=== PATIENT | female | born 1985 | race African-American/Black ===

== ENCOUNTER 2019-02-20 08:10 | Inpatient (IN) | payer MEDICAID ==
[~2019-02-20] VITALS: Ht 172.7 cm; Wt 81.4 kg
[2019-02-20] VITALS (31 sets, daily range): BP systolic 116–142; BP diastolic 58–89; PULSE 67–103; TEMP 97.4–99.2
[~2019-02-20 08:10] MED LIST: CEPHALEXIN500 M1 PO; DEPO SHOT; MOTRIN 600600 MG/TAB PO; NORCO 325 MG-7.1 TAB PO; PERCOCET 325 MG1 TA2 PO; PHENERGAN 25 TA25 MG PO; RYBIX ODT50 MG PO
--- NOTE | 2019-02-20 08:20 | NUR ---
0820-G6L4 38.[address] PADILLA ESCORTED TO UNIT VIA WHEELCHAIR WITH COMPLAINTS OF BACK ACHE AND POSSIBLE SROM. ASSISTED INTO GOWN AND PLACED ON EFM. VSS. AMNITEST WITH INCONCLUSIVE RESULT, SVE /-2 BOW BULDGING. UPDATED ON PLAN OF CARE. 0842-DR. CLIFFORD UPDATED ON PATIENT, ORDERS TO ADMINT WITH GBS + PROTOCOL. 0846-Elisabeth CHICAS CRNA NOTIFIED OF PATIENTS REQUEST FOR EPIDURAL. 0905-NENO TO PATIENT ROOM 0910-Elisabeth CHICAS ASSISTS WITH IV PLACEMENT AFTER TWO FAILED ATTEMPTS, IV PER NENO TO RIGHT AC 18G, LABS DRAWN, LR INFUSING PER ORDERS AND PROTOCOL. PEN G PER GBS PROTOCOL AND MD ORDER, SEE EMAR 0915-PATIENT SITTING UPRIGHT ON BEDSIDE FOR EPIDURAL PLACEMENT. 0920-SS ADMINISTERED BY BARRY LAZCANO 0922-TEST DOSE ADMINISTERED BY BARRY LAZCANO. VSS, PATIENT DENIES SYMPTOMS OF REACTION OR SIDE EFFECTS. 0934-DR. CLIFFORD ON UNIT REVIEWS FHR MONITOR AND IN TO DISCUSS PLAN OF CARE WITH PATIENT. 0950-ESPINOSA TO DD, CLEAR YELLOW URINE RETURN. SVE 6-7/100/-2 CHEKO CARE PROVIDED. REPOSITIONED WL. 09
[2019-02-20] MEDS ORDERED: PRENATAL (08:40)
[2019-02-20 09:39] LABS: BASO % 0.3 % (0.0-2.0); EOS # 0.1 (0.0-0.7); EOS % 0.8 % (0-4.0); GRAN # 8.7 (1.4-6.5); GRAN % 71.1 % (42.2-75.2); HEMOGLOBIN 11.7 g/dl (12.5-16.0); LYMPH # 2.1 (1.2-3.4); LYMPH % 17.4 % (20.0-51.0); MEAN CELL VOLUME 94 fl (80.0-100.0); MEAN CORPUSCULAR HEMOGLOBIN 32 pg (27.0-31.0); MEAN CORPUSCULAR HGB CONC 34 g/dl (33.0-37.0); MEAN PLATELET VOLUME 9.5 fl (7.4-10.4); MONO # 1.1 (0.1-0.6); MONO % 9.2 % (1.7-9.3); PLATELET COUNT 319 K/mm3 (130-400); RED BLOOD COUNT 3.71 M/mm3 (4.10-5.30); REDCELL DISTRIBUTION WIDTH-CV 13.5 % (11.5-14.5)
[2019-02-20 09:41] LABS: HEMATOCRIT 34.8 % (37.0-47.0)
--- NOTE | 2019-02-20 11:50 | NUR ---
1150-SVE /-1, UPDATED DR. CLIFFORD WHO REMAINS ON UNIT AT NURSES DESK. ORDERS TO START PITOCIN PER PROTOCOL. 1156-PITOCIN STARTED AND VERIFIED PER PROTOCOL WITH GRICELDA MEADOWS AT 2MU/MIN.
--- NOTE | 2019-02-20 12:57 | NUR ---
1257-SVE BY DR. CLIFFORD /-1, AROM CLEAR FLUID NOTED. PLAN PER MD TO LABOR DOWN. MD REMAINS ON UNIT.
--- NOTE | 2019-02-20 13:30 | NUR ---
1330-SVE 10100/0, ESPINOSA DISCONTINUED 650ML CLEAR YELLOW URINE. UPDATED DR. CLIFFORD WHO IS ON UNIT. 1338-BEGIN PUSHING WITH CONTRACTION WITH THIS RN. PATIENT MOVES VERTEX WELL. DIFFICULTY TRACING FHR. RN ADJUSTING EFM. 1340-DR. CLIFFORD REQUESTED TO ROOM FOR DELIVERY. FHR DECEL DOWN TO 75BPM, PATIENT RL, OXYGEN VIA OXYMASK AT 10L/MIN 1343-PATIENT BEGINS PUSHING WITH MD THROUGH CONTRACTION. 1344-DELIVERY OF HEAD. 1344-SPONTANEOUS VAGINAL DELIVERY OF VIABLE FEMALE ATTENDED BY DR. CLIFFORD. TO MOTHERS ABDOMENT, CORD CLAMPED X2 BY MD AND CUT BY MATERNAL GRANDMOTHER. CARE OF INFANT ASSUMED BY GRICELDA PRICE APGARS 8/9. 1347-SPONTANEOUS DELVIERY OF INTACT PLACENTA BY DR. CLIFFORD. FUNDAL MASSAGE FIRM. LOCHIA WNL. EBL 200ML PITOCIN BOLUS STARTED PER MD ORDERS AND PROTOCOL. CHEKO CARE PROVIDED, INTACT PERINEUM, ICE TO PERINEUM. UPDATED ON PLAN OF CARE AND SAFETY.
--- NOTE | 2019-02-20 15:45 | NUR ---
1545-PATIENT UP TO BATHROOM, AMBULATES WITH STEADY GAIT. ASSISTED WITH CHEKO CARE. EASILY VOIDS 700ML CLEAR YELLOW URINE. AMBULATES TO ROOM 208, ORIENTED TO ROOM. UPDATED ON PLAN OF CARE. WILL CONTINUE TO MONITOR.
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
--- NOTE | 2019-02-20 18:50 | NUR ---
PT CHANGED TO "NO INFO", PASSWORD PROVIDED TO PT. DISCUSSED LIMITING NUMBER OF VISITORS THAT KNOW HER PASSWORD AND THAT VISITORS MUST KNOW HER FIRST NAME, LAST NAME, AND HER PASSWORD TO HAVE ACCESS TO THE UNIT. UNDERSTANDING VERBALZIED BY PT.
[2019-02-21 04:40] VITALS: BP 133/86; PULSE 73; TEMP 97.8
[2019-02-21] MEDS ORDERED: IBU600 MG PO (08:34)
[2019-02-21 09:05] VITALS: BP 139/88; PULSE 91; TEMP 98.3
--- NOTE | 2019-02-21 11:44 | NUR ---
Initial visit attempt; Commercial Loan Processor left card of congratulations and information regarding the availability of Spiritual Care at [facility]. Hearing Screening in progress.
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
[2019-02-21 17:02] VITALS: BP 128/55; PULSE 77; TEMP 98.6
[2019-02-21 22:35] VITALS: BP 136/81; PULSE 92; TEMP 98.2
[2019-02-22 08:34] VITALS: BP 115/76; PULSE 72; TEMP 98.1
--- NOTE | 2019-02-22 11:44 | NUR ---
1130 all discharge instructions given to patient, teach patient that baby is to not sleep in bed with her. Baby is to sleep in bassinet or crib. verbal understanding noted.
== END 2019-02-22 12:22 | disposition home or self-care (01) | DRG 807 ==
LOC: LDRO 08:10 → OB 08:45 → LDR 08:45 → OB 08:45
PROVIDERS: Obstetrics & Gynecology; ADMIT Obstetrics & Gynecology
PROC: 10E0XZZ Delivery of Products of Conception, External Approach (ICD-10-PCS; principal; 2019-02-20)
DX: O26.893 Other specified pregnancy related conditions, third trimester (principal); Z37.0 Single live birth; Z67.41 Type O blood, Rh negative; Z3A.38 38 weeks gestation of pregnancy; O99.824 Streptococcus B carrier state complicating childbirth; Z88.1 Allergy status to other antibiotic agents; O99.334 Smoking (tobacco) complicating childbirth
CPT/HCPCS: J2540; J2590; J2791; J2795; J7120

== ENCOUNTER 2019-05-25 22:08 | Emergency (ER) | payer MEDICAID ==
[~2019-05-25] VITALS: Ht 162.6 cm; Wt 68.2 kg
[~2019-05-25 22:08] MED LIST changes: +IBU600 MG PO; +PRENATAL
[2019-05-25 22:30] VITALS: TEMP 97
[2019-05-26] MEDS ORDERED: CALCIUM CARBON650 M2 (01:02)
[2019-05-26] MEDS ORDERED: NATURAL IRON65 MG (01:02)
[2019-05-26 01:46] VITALS: BP 121/80; PULSE 103
== END 2019-05-26 01:46 | disposition home or self-care (01) ==
LOC: COL.ER 22:08
DX: S61.210A Laceration without foreign body of right index finger without damage to nail, initial encounter (principal); Z87.891 Personal history of nicotine dependence; Z88.1 Allergy status to other antibiotic agents; W26.8XXA Contact with other sharp object(s), not elsewhere classified, initial encounter; Y92.009 Unspecified place in unspecified non-institutional (private) residence as the place of occurrence of the external cause

== ENCOUNTER 2019-06-09 19:55 | Emergency (ER) | payer MEDICAID ==
[~2019-06-09] VITALS: Ht 162.6 cm; Wt 68.6 kg
[~2019-06-09 19:55] MED LIST changes: +CALCIUM CARBON650 M2; +NATURAL IRON65 MG
[2019-06-09 20:21] VITALS: BP 155/85; PULSE 119; TEMP 98
[2019-06-09] MEDS ORDERED: BACTRIM DS 8001 TAB PO (20:42)
[2019-06-09] MEDS ORDERED: CEPHALEXIN500 M1 PO (20:42)
== END 2019-06-09 21:13 | disposition home or self-care (01) ==
LOC: COL.ER 19:55
DX: L02.511 Cutaneous abscess of right hand (principal)

== ENCOUNTER → 2021-04-11 | Outpatient (CLI) | payer OTHER, MEDICAID ==
[~2021-04-11] MED LIST changes: +BACTRIM DS 8001 TAB PO; +LANTUS SOLOS100 U/ML SQ; +PRENATAL TABLET PO
--- NOTE | 2021-04-11 13:32 | NUR ---
Called office of Dr. Franklin with recommendation to initiate insulin. No answer from nurse, but left message on identified VM with suggestion, pt's preferred pharmacy and contact information for a return call if needing clarification. Fax with change in order request was sent to Dr. Franklin' office and was transmitted successfully.
== END ==
LOC: DIA.ED 09:14
DX: O24.419 Gestational diabetes mellitus in pregnancy, unspecified control (principal)
CPT/HCPCS: G0108

== ENCOUNTER → 2021-05-13 | Outpatient (CLI) | payer OTHER, MEDICAID | LOC: DIA.ED 10:41 | DX: O24.419 Gestational diabetes mellitus in pregnancy, unspecified control (principal) | CPT/HCPCS: G0108 ==

== ENCOUNTER → 2021-06-05 | Outpatient (CLI) | payer OTHER, MEDICAID | LOC: DIA.ED 05-29 13:59 | DX: O24.419 Gestational diabetes mellitus in pregnancy, unspecified control (principal); Z79.4 Long term (current) use of insulin | CPT/HCPCS: G0108 ==

== ENCOUNTER 2021-06-09 22:03 | Inpatient (IN) | payer OTHER, MEDICAID ==
[~2021-06-09] VITALS: Ht 162.6 cm; Wt 89.5 kg
[~2021-06-09 22:03] MED LIST changes: -LANTUS SOLOS100 U/ML SQ; -PRENATAL TABLET PO
[2021-06-09 22:10] VITALS: BP 131/91; PULSE 87; TEMP 98.6
--- NOTE | 2021-06-09 22:10 | NUR ---
2209 G7L5 38.5 WEEK GEST TO LR5 WITH C/O CONTRACTIONS. UNCOMFORTABLE. SVE /-3 WITH BULGING BOW. BLOODY SHOW PRESENT. ADM ASSESSMENT DONE 2214 DR PADILLA NOTIFIED AND ADM ORDERS RECEIVED. HAS IDDGDM. ACCUCHECK DONE ON ADM = 108. STATES TAKES 24 HOUR INSULIN WHICH LAST TOOK [address] PADILLA AWARE. PERMITS SIGNED AND THINKING ABOUT EPIDURAL.
[2021-06-09] MEDS ORDERED: PRENATAL TABLET PO (22:29)
[2021-06-09] MEDS ORDERED: NATURAL IRON65 MG (22:30)
[2021-06-09] MEDS ORDERED: LANTUS SOLOS100 U/ML SQ (22:31)
[2021-06-09 22:50] VITALS: BP 134/85; PULSE 98
--- NOTE | 2021-06-09 22:50 | NUR ---
2240 IV FLUIDS 1000 CC NS STARTED IN RIGHT WRIST. WOULD LIKE TO BE CHECKED 2250 SVE 8CM WITH LARGE BAG OF WATER AND PRESENTING PART -3. WOULD LIKE AN EPIDURAL NOW. PROSPECT MANAGER NOTIFIED.
[2021-06-09 23:00] VITALS: BP 129/93; PULSE 96
--- NOTE | 2021-06-09 23:04 | NUR ---
2304 SROM WITH MECONIUM FLUID. [address] PADILLA CALLED TO COME FOR DELIVERY. READIED FOR DELIVERY 2317 DEL VIABLE MALE OVER INTACT PERINEUM WITH 8/9/9 APGARS. IV CONTS TO INFUSE.
[2021-06-09 23:13] LABS: BASO % 0.3 % (0.0-2.0); EOS # 0.1 (0.0-0.7); EOS % 0.6 % (0-4.0); GRAN # 8.6 (1.4-6.5); GRAN % 72.2 % (42.2-75.2); HEMATOCRIT 34.5 % (37.0-47.0); HEMOGLOBIN 11.5 g/dl (12.5-16.0); LYMPH % 16.5 % (20.0-51.0); MEAN CELL VOLUME 90 fl (80.0-100.0); MEAN CORPUSCULAR HEMOGLOBIN 30 pg (27.0-31.0); MEAN CORPUSCULAR HGB CONC 33 g/dl (33.0-37.0); MONO # 1.2 (0.1-0.6); MONO % 9.9 % (1.7-9.3); PLATELET COUNT 314 K/mm3 (130-400); RED BLOOD COUNT 3.84 M/mm3 (4.10-5.30); REDCELL DISTRIBUTION WIDTH-CV 13.7 % (11.5-14.5)
[2021-06-09 23:20] VITALS: BP 129/81; PULSE 83
[2021-06-09 23:35] VITALS: BP 124/71; PULSE 80
--- NOTE | 2021-06-09 23:35 | NUR ---
2335 FF. CLOTS X3 EXPRESSED WITH FUNDAL MASSAGE AND LARGE RUBRA. DR PADILLA HERE AND ORDER FOR METHERGINE GIVEN 2346 METHERGINE 0.2 MG IM GIVEN. NURSING BABY. C/O PERINEAL PAIN. MOTRIN 600MG PO GIVEN.
[2021-06-09 23:50] VITALS: BP 120/69; PULSE 86
[2021-06-10] VITALS (9 sets, daily range): BP systolic 124–164; BP diastolic 72–89; PULSE 69–94; TEMP 97.6–98.4
--- NOTE | 2021-06-10 | NUR ---
0000 FF WITH NO EXCESS VAG BLEEDING WITH FUNDAL CHECK
--- NOTE | 2021-06-10 00:20 | NUR ---
0020 3 CM CLOT EXPRESSED AND SOME FREE FLOW WITH FUNDAL CHECK. FUNDAS FIRM.
--- NOTE | 2021-06-10 01:00 | NUR ---
0100 IV TO INT. UP TO BR WITH ASSIST AND VOIDED 200CC. NO EXCESS VAG BLEEDING NOTED. PERICARE DONE. AMB TO 214 AND NICOLE WELL.
--- NOTE | 2021-06-10 01:30 | NUR ---
0130 EMESIS OF UNDIGESTED FOOD. FEELING BETTER. RESTING COMFORTABLY
--- NOTE | 2021-06-10 10:01 | NUR ---
Initial visit; Patient thanked Fraud Manager for offering congratulations and God's blessings for the of her son. Fraud Manager thanked patient for choosing [facility].
--- NOTE | 2021-06-10 18:30 | NUR ---
Report recieved. Asleep at this time. Support person at bedside feeding infant. Whiteboard updated.
--- NOTE | 2021-06-10 20:00 | NUR ---
Woke at this time for VS and assessment. asleep in bed between mom and support person. Mom required a firm rub on her shoulder to wake her. Requested Percocet and Motrin at this time. Infant to nsy for the night so parents can sleep.
--- NOTE | 2021-06-10 21:02 | NUR ---
Contacted blood [facility] at this time to get an update on Rhogam studies. Tech notified this nruse that they would be drawn on 06/11/2021 at 0600.
--- NOTE | 2021-06-11 03:30 | NUR ---
Woke pt at this time to feed .
--- NOTE | 2021-06-11 04:30 | NUR ---
Asleep at this time with unopened bottle at bedside. Woke pt who reports she did not feed baby. Instructed it was time to feed the baby; sat up in bed and requested tylenol.
[2021-06-11 08:00] VITALS: BP 127/70; PULSE 81; TEMP 98
[2021-06-11] MEDS ORDERED: IBU600 MG PO (08:45)
--- NOTE | 2021-06-11 13:00 | NUR ---
Rests in bed, alert. Eating noon meal. Discharge instructions given, verbalizes understanding.
--- NOTE | 2021-06-14 15:51 | NUR ---
Patient's infant's cord blood was positive for amphetamines and cannabinoids. human services worker filed a CPS report # [id number] and faxed results.
--- NOTE | 2021-06-14 16:48 | NUR ---
Marek Devine, KINDRA, contacted social contact worker and will make contact with patient to assess for early head start and substance abuse treatment. Marek stated he is familiar with patient.
== END 2021-06-11 13:20 | disposition home or self-care (01) | DRG 807 ==
LOC: LDRO 22:03 → OB 22:25 → LDR 22:25 → OB 06-10 01:00
PROVIDERS: ADMIT Obstetrics & Gynecology
PROC: 10E0XZZ Delivery of Products of Conception, External Approach (ICD-10-PCS; principal; 2021-06-09)
DX: O24.420 Gestational diabetes mellitus in childbirth, diet controlled (principal); Z37.0 Single live birth; O99.02 Anemia complicating childbirth; D64.9 Anemia, unspecified; O77.0 Labor and delivery complicated by meconium in amniotic fluid; Z3A.38 38 weeks gestation of pregnancy
CPT/HCPCS: J2210; J2590; J2791; J7030

== ENCOUNTER 2023-03-20 19:09 | Emergency (ER) | payer MEDICAID ==
[~2023-03-20 19:09] MED LIST changes: +LANTUS SOLOS100 U/ML SQ; +PRENATAL TABLET PO
[2023-03-20 19:14] VITALS: TEMP 98.2
[2023-03-20 20:07] LABS: BASO # 0.1 K/mm3 (0.0-0.2); BASO % 0.4 % (0.0-2.0); EOS # 0.1 K/mm3 (0.0-0.7); EOS % 0.4 % (0.0-4.0); GRAN % 71.1 % (42.2-75.2); LYMPH # 2.9 K/mm3 (1.2-3.4); LYMPH % 20.3 % (20.0-51.0); MEAN CELL VOLUME 88 fl (80.0-100.0); MEAN CORPUSCULAR HEMOGLOBIN 32 pg (27-31); MEAN CORPUSCULAR HGB CONC 36 g/dl (33.0-37.0); MEAN PLATELET VOLUME 8.7 fl (7.4-10.4); MONO # 1.1 K/mm3 (0.1-0.6); MONO % 7.5 % (1.7-9.3); PLATELET COUNT 326 K/mm3 (130-400); RED BLOOD COUNT 4.12 M/mm3 (4.10-5.30); REDCELL DISTRIBUTION WIDTH-CV 12.3 % (11.5-14.5)
[2023-03-20 20:08] LABS: HEMATOCRIT 36.3 % (37.0-47.0)
[2023-03-20 21:12] LABS: ALBUMIN 3.5 gm/dL (3.5-5.0); BILIRUBIN,TOTAL 0.4 mg/dL (0.2-1.2); CALCIUM 9.7 mg/dL (8.4-10.2); CREATININE, serum 0.68 mg/dL (0.57-1.11); POTASSIUM 3.9 mmol/L (3.5-4.5); TOTAL PROTEIN 7.2 gm/dL (6.2-8.1)
[2023-03-20 23:11] VITALS: BP 116/81; PULSE 93
== END 2023-03-20 23:11 | disposition home or self-care (01) ==
LOC: COL.ER 19:09
PROVIDERS: Emergency Medicine
DX: O20.0 Threatened abortion (principal); O99.111 Other diseases of the blood and blood-forming organs and certain disorders involving the immune mechanism complicating pregnancy, first trimester; D72.829 Elevated white blood cell count, unspecified; O99.331 Smoking (tobacco) complicating pregnancy, first trimester; F17.200 Nicotine dependence, unspecified, uncomplicated; O09.521 Supervision of elderly multigravida, first trimester; Z28.310 Unvaccinated for COVID-19; Z3A.10 10 weeks gestation of pregnancy
CPT/HCPCS: J2791